=== PATIENT | male | born 1980 ===

== ENCOUNTER → 2018-06-21 22:29 | Outpatient (REF) | payer OTHER, SELFPAY ==
[2018-06-21 23:54] LABS: Add Manual Diff / Slide Review NO; Basophils Percent Auto 0.4 % (0-2); Eosinophils Percent Auto 1.6 % (2-4); Hematocrit 42.4 % (41-53); Hemoglobin 14.4 g/dL (13.5-17.5); Lymphocytes Percent Auto 26.7 % (25-40); Mean Corpuscular HGB Conc 34.1 % (30-36); Mean Corpuscular Volume 88.1 fL (80-100); Monocytes Percent Auto 5.8 % (3-14); Neutrophils Absolute Auto 4100 /uL (1500-7000); Neutrophils Percent Auto 65.5 % (50-75); Platelet Count 207 X10^3/uL (150-400); Red Blood Cell Count 4.81 X10^6/uL (4.5-5.9); Red Cell Distribution Width 13.3 % (11.6-14.8); White Blood Cell Count 6.3 X10^3/uL (4.5-11.0)
[2018-06-22] LABS: Alanine Aminotransferase 33 IU/L (21-72); Albumin 4.4 g/dL (3.5-5.0); Albumin Globulin Ratio 1.6 (1.0-2.8); Alkaline Phosphatase 62 U/L (38-126); Aspartate Aminotransferase 27 IU/L (17-59); BUN Creatinine Ratio 27.5 (6-22); Bilirubin Total 0.6 mg/dL (0.2-1.3); Blood Urea Nitrogen 22 mg/dL (9-20); Calcium 9.9 mg/dL (8.4-10.2); Carbon Dioxide 31 mmol/L (22-32); Chloride 100 mmol/L (98-107); Estimated Glomerular Filt Rate > 60.0 mL/min (>60); Globulin 2.7 g/dL (1.7-4.1); Glucose 99 mg/dL (70-100); HEMOLYSIS < 15 (0-50); Sodium 142 mmol/L (137-145); Total Protein 7.1 g/dL (6.3-8.2)
[2018-06-22 00:47] LABS: Free T4, Direct Thyroxine 1.19 ng/dL (0.78-2.19)
[2018-06-22 01:01] LABS: Thyroid Stimulating Hormone 2.73 uIU/mL (0.47-4.68)
[2018-06-24 20:56] LABS: Albumin 4.6 g/dL (3.6-5.1); Sex Hormone Binding Globulin 21 nmol/L (10-50); Testosterone, Bioavailable 37.4 ng/dL (110.0-575.0); Testosterone, Total 108 ng/dL (250-1100); Testosterone,Free 17.8 pg/mL (46.0-224.0)
[2018-06-26 20:07] LABS: Estradiol 25 pg/mL (< 40); PSA Total 0.51 ng/mL (< 4.01)
[2018-06-27 01:00] LABS: Sex Hormone Binding Globulin 21 nmol/L (10-50)
== END ==
LOC: LAB 22:29
PROVIDERS: Visit Provider Naturopath
DX: R53.83 Other fatigue (principal); Z13.89 Encounter for screening for other disorder; R63.5 Abnormal weight gain
CPT/HCPCS: 36415; 80053; 82040; 82670; 82728; 84153; 84154; 84270; 84403; 84439; 84443; 85025

== ENCOUNTER → 2018-10-06 22:05 | Outpatient (REF) | payer OTHER, SELFPAY ==
[2018-10-07 01:06] LABS: Alanine Aminotransferase 23 IU/L (21-72); Albumin 4.3 g/dL (3.5-5.0); Albumin Globulin Ratio 1.7 (1.0-2.8); Alkaline Phosphatase 61 U/L (38-126); Aspartate Aminotransferase 24 IU/L (17-59); BUN Creatinine Ratio 23.3 (6-22); Bilirubin Total 0.6 mg/dL (0.2-1.3); Blood Urea Nitrogen 21 mg/dL (9-20); Calcium 9.8 mg/dL (8.4-10.2); Carbon Dioxide 30 mmol/L (22-32); Chloride 99 mmol/L (98-107); Estimated Glomerular Filt Rate > 60.0 mL/min (>60); Globulin 2.5 g/dL (1.7-4.1); Glucose 97 mg/dL (70-100); HEMOLYSIS < 15 (0-50); Potassium 4.6 mmol/L (3.4-5.1); Sodium 137 mmol/L (137-145); Total Protein 6.8 g/dL (6.3-8.2)
[2018-10-07 01:19] LABS: Hemoglobin 17.3 g/dL (13.5-17.5); Mean Corpuscular HGB Conc 33.9 % (30-36); Mean Corpuscular Hemoglobin 30.1 PG (26-34); Mean Corpuscular Volume 88.8 fL (80-100); Platelet Count 211 X10^3/uL (150-400); Red Blood Cell Count 5.74 X10^6/uL (4.5-5.9); Red Cell Distribution Width 13.2 % (11.6-14.8); White Blood Cell Count 6.8 X10^3/uL (4.5-11.0)
[2018-10-07 01:44] LABS: Add Manual Diff / Slide Review YES
[2018-10-07 01:47] LABS: Neutrophils Absolute Manual 4488 /uL (3000-5900); RBC Morphology Normal Morphology; Total Cells Counted 100
[2018-10-10 14:12] LABS: PSA Total 0.86 ng/mL (< 4.01)
[2018-10-10 15:48] LABS: Estradiol 49 pg/mL (< 40)
== END ==
LOC: LAB 22:05
PROVIDERS: Visit Provider Naturopath
DX: E29.1 Testicular hypofunction (principal)
CPT/HCPCS: 36415; 80053; 82670; 84153; 84154; 84270; 84402; 84403; 85025